=== PATIENT | female | born 1990 | race Caucasian/White ===

== ENCOUNTER → 2020-05-19 11:22 | Outpatient (BNVA) | payer OTHER, SELFPAY | PROVIDERS: PCP Internal Medicine; Referring Provider Internal Medicine; Visit Provider Student in an Organized Health Care Education/Training Program | DX: Z76.89 Persons encountering health services in other specified circumstances (principal) ==

== ENCOUNTER → 2020-10-01 07:32 | Outpatient (BNVA) | payer OTHER, SELFPAY | PROVIDERS: PCP Internal Medicine; Visit Provider Student in an Organized Health Care Education/Training Program ==

== ENCOUNTER → 2021-04-14 09:47 | Outpatient (BNVA) | payer OTHER, SELFPAY | PROVIDERS: PCP Internal Medicine; Visit Provider Nurse Practitioner Family ==

== ENCOUNTER → 2021-08-12 12:30 | Outpatient (BNVA) | payer OTHER, SELFPAY | PROVIDERS: PCP Internal Medicine; Visit Provider Nurse Practitioner Family ==

== ENCOUNTER 2021-10-13 07:34 | Emergency (ER) | payer OTHER, SELFPAY ==
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
[2021-10-13 07:48] VITALS: BP 128/76; BP 130/82; PULSE 100; PULSE 93; RESP 18; TEMP 36.6; O2SAT 100; BMI 27.8
[2021-10-13] MEDS: Ibuprofen 600 MG TABLET PO (08:17)
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
[2021-10-13 09:43] LABS: UPreg QC Valid YES; Urine Pregnancy NEGATIVE (NEGATIVE)
[2021-10-13 09:44] LABS: Appearance Urine CLEAR; Color Urine YELLOW; Glucose Urine UA NEG (NEG); Leukocyte Esterase Urine NEG (NEG); Nitrite Urine NEG (NEG); Specific Gravity - Urine <= 1.005 (1.005-1.025); Urine Blood NEG (NEG); Urine Ketones NEG (NEG); Urine Protein NEG (NEG-TRACE)
== END 2021-10-13 12:19 | disposition home or self-care (01) ==
PROVIDERS: Emergency Provider Emergency Medicine; PCP Internal Medicine
DX: Z04.1 Encounter for examination and observation following transport accident (principal); R07.9 Chest pain, unspecified; M25.562 Pain in left knee
CPT/HCPCS: 70450; 71045; 72125; 73562; 81003; 81025; 99284

== ENCOUNTER → 2022-09-04 13:18 | Outpatient (BNVA) | payer OTHER, SELFPAY | PROVIDERS: PCP Internal Medicine; Visit Provider Nurse Practitioner Family | DX: Z13.89 Encounter for screening for other disorder (principal) ==

== ENCOUNTER 2023-01-18 13:29 | Outpatient (AMB) | payer OTHER, SELFPAY ==
[2023-01-18 13:38] VITALS: BP 108/58; PULSE 97; TEMP 36.3; O2SAT 99; BMI 29.9
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
== END 2023-01-18 14:17 | disposition home or self-care (01) ==
PROVIDERS: PCP Internal Medicine; Visit Provider Student in an Organized Health Care Education/Training Program
DX: M05.79 Rheumatoid arthritis with rheumatoid factor of multiple sites without organ or systems involvement (principal); Z33.1 Pregnant state, incidental
CPT/HCPCS: 99214

== ENCOUNTER → 2023-01-18 13:29 | Outpatient (BNVA) | payer OTHER, SELFPAY | PROVIDERS: PCP Internal Medicine; Visit Provider Student in an Organized Health Care Education/Training Program ==

== ENCOUNTER 2023-10-15 14:12 | Outpatient (AMB) | payer OTHER, SELFPAY ==
[2023-10-15 14:20] VITALS: BP 120/68; PULSE 85; O2SAT 98; BMI 27.2
--- NOTE | 2023-10-15 14:20 | A.OFFVIS_ITS ---
Vital Signs 10/15/23 14:20 Height 5 ft 4 in Weight 158 lb 11.725 oz BMI 27.2 BP 120/68 Blood Pressure Location Rt brachial Position Sitting Pulse 85 Pulse Source Pulse Oximeter Pulse Oximetry (%) 98 Oxygen Delivery Method Room Air Intake Visit Reasons: RA Intake Note: Patient last seen 01/18/23 presents today for follow up and test results Personal Financial Advisor Required: No Accompanied by: Self / Same As Patient Allergies Sulfa (Sulfonamide Antibiotics) [SULFA (SULFONAMIDE ANTIBIOTICS)] Allergy (Unknown, Verified 10/15/23 14:27) RASH, hives, childhood- rash? indomethacin [From INDOCIN] Adverse Reaction (Mild, Verified 10/15/23 14:27) NAUSEA Medication List - Last Reconciled 10/15/23 by Stoney Montoya MD Cimzia (certolizumab pegol) 200 mg subcut Q2W NS ibuprofen 800 mg PO ONCE PRN prenat.vits,allyson,gbu-jacf-gozhw 1 tab PO DAILY HPI Comments Details: This is a 32-year-old female with seropositive RA who returns for follow-up. Patient is doing fairly well overall. She delivered a healthy baby about 8 months ago. She breastfed for 6 months. Her RA does very well while she is . Once she delivers she gets intermittent flare-ups. She is compliant with her Cimzia, she was taking it throughout her and breast-feeding. She states that she gets intermittent flare-ups, intermittent finger swelling. Her left 3rd PIP is mildly swollen. She takes ibuprofen 800 mg about once weekly. The bump on her right index DIP she feels has enlarged. She states that she gets bumps on her elbows. She believes that she started to develop Raynaud's phenomenon. Her fingers change color in to white blue and purple. Only minimally symptomatic. [facility] Medical History (Updated 10/15/23 @ 14:54 by Stoney Montoya MD) Seropositive rheumatoid arthritis Surgical History Hx of section History of surgery History of cystoscopy H/O adenoidectomy Family History Father Cancer Mother No problems noted. 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 [facility] [place] arthralgias and Reports joint swelling Physical Exam Const General: cooperative, healthy appearing and comfortable Nutritional Appearance: average body habitus Orientation/consciousness: patient oriented x3 Limitations: no limitations HEENT Head: Yes normocephalic and Yes atraumatic Mouth: moist mucous membranes Resp Effort & Inspection: normal respiratory effort and able to speak in complete sentences Auscultation: clear to auscultation bilaterally Cardio Rate: regular rate Rhythm: regular rhythm Neuro General: patient oriented x3 Extrem Other: Minimal swelling left 3rd PIP, not tender to palpation Some livido reticularis. Normal nailfold capillaroscopy Firm nodule on the ulnar aspect of her right index DIP, similar lesion on the left elbow. Likely rheumatoid nodules Assessment & Plan Assessment & Plan (1) Seropositive rheumatoid arthritis: Comment: Rheumatoid nodules Age 17 started on plaquenil, took for 2 years Age 21 started on MTX and Enbrel, stopped the MTX Enbrel 07/2016-03/2018 switched to Cimzia in preparation for Cimzia 05/2018- present Code(s): M05.9 - Rheumatoid arthritis with rheumatoid factor, unspecified Category: Medical Plan: Seropositive rheumatoid arthritis (RF+ CCP++) on Cimzia returns for follow-up. RA well controlled on Cimzia 20 mg every other week. Patient delivered a healthy baby 8 months ago. She breast-fed for 6 months. She has been continuing her Cimzia throughout her and breast-feeding. She is doing quite well overall except for mild intermittent flare-ups that resolved with ibuprofen 800 mg which she takes about once a week. Labs are unremarkable Continue Cimzia 200 mg every other week. Can continue with ibuprofen 800 mg once weekly. Labs before next visit in 6 months Plan I spent 26 minutes reviewing patient's chart, evaluating patient, ordering diagnostic workup, counseling patient and documenting in the chart Orders: Orders Complete Blood Count Auto Diff 6 Months M05.9 - Rheumatoid arthritis with rheumatoid factor, unspecified Comprehensive Met. Panel 6 Months M05.9 - Rheumatoid arthritis with rheumatoid factor, unspecified C Reactive Protein 6 Months M05.9 - Rheumatoid arthritis with rheumatoid factor, unspecified Erythrocyte Sedimentation Rate 6 Months M05.9 - Rheumatoid arthritis with rheumatoid factor, unspecified Coding Level of Care Code Est Pt Level 4 (57189) Diagnoses Seropositive rheumatoid arthritis M05.9
== END 2023-10-15 15:15 | disposition home or self-care (01) ==
PROVIDERS: PCP Internal Medicine; Visit Provider Student in an Organized Health Care Education/Training Program
DX: M05.79 Rheumatoid arthritis with rheumatoid factor of multiple sites without organ or systems involvement (principal)
CPT/HCPCS: 99214

== ENCOUNTER → 2023-10-15 14:12 | Outpatient (BNVA) | payer OTHER, SELFPAY | PROVIDERS: PCP Internal Medicine; Visit Provider Student in an Organized Health Care Education/Training Program ==

== ENCOUNTER 2024-06-19 14:05 | Outpatient (AMB) | payer OTHER, SELFPAY ==
--- NOTE | 2024-06-19 14:10 | A.OFFVIS_ITS ---
Vital Signs 06/19/24 14:15 Height 5 ft 4 in Weight 153 lb 3.54 oz BMI 26.3 BP 115/74 Blood Pressure Location Lt brachial Position Sitting Pulse 87 Pulse Source Pulse Oximeter Pulse Oximetry (%) 98 Oxygen Delivery Method Room Air Intake Visit Reasons: RA Intake Note: Patient presents for RA. Allergies Sulfa (Sulfonamide Antibiotics) [SULFA (SULFONAMIDE ANTIBIOTICS)] Allergy (Unknown, Verified 06/19/24 14:14) RASH, hives, childhood- rash? indomethacin [From INDOCIN] Adverse Reaction (Mild, Verified 06/19/24 14:14) NAUSEA Medication List - Last Reconciled 06/19/24 by Mirta Billy MD Cimzia (certolizumab pegol) 200 mg subcut Q2W NS ibuprofen 800 mg PO ONCE PRN prenat.vits,allyson,[id number]-pxmux 1 tab PO DAILY HPI Comments Details: Patient is a 33-year-old female with seropositive nodular and erosive rheumatoid arthritis here today for follow up Interval History: Patient last seen 10/15/[address] Montoya. At that time she was doing fairly well having recently delivered a healthy baby 8 months prior. She does note that while she is (this is her 2nd child) she is in complete remission of her rheumatoid arthritis and then once she delivers she gets intermittent flare-ups. For her flare-up she was taking ibuprofen 800 mg . Today, She again reports getting intermittent flares that responds to ibuprofen especially after a long day or day where she pushes herself extra. Particularly she is concerned today about her right elbow stating that she has significant pain involving the elbow and sometimes she feels like she can not even straighten it. 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 Const Details: Review of Systems Constitutional: Denies fever, chills, weight loss ENT: Denies vision changes, eye pain or eye redness, dental caries, dry mouth GI: Denies nausea, vomiting, diarrhea, abdominal pain, change in BM Pulm: Denies SOB, RODRGIUEZ, hemoptysis, wheezing Cards: Denies chest pain, palpitations Skin: Denies Raynaud's, rash, nail changes, photosensitivity, AIRFLIGHT ATTENDANTS SUPERVISOR: Denies headaches, weakness, paresthesias, recurrent falls MSK: as per HPI All other systems reviewed and are unremarkable except noted above Physical Exam Vital Signs: Last Vital Signs Pulse 87 06/19/24 14:15 BP 115/74 06/19/24 14:15 Pulse Ox 98 06/19/24 14:15 Oxygen Delivery Method Room Air 06/19/24 14:15 BMI result Body Mass Index 26.3 Vital signs reviewed Physical Examination CONSTITUITIONAL Patient alert and cooperative. Well appearing and in no apparent painful distress HEENT Conjunctiva and sclera clear. ?Pupils equal round and reactive to light. ?No lymphadenopathy. ? CHEST/RESPIRATORY SYSTEM Normal respiratory effort and able to speak in complete sentences. ?Clear to auscultation bilaterally. ?No crackles, rales, rhonchi, wheezes heard. CARDIAC SYSTEM Regular rate and rhythm. ?S1 and S2 heard no murmurs. ?Radial pulses intact bilaterally MSK Hands: ?Good parts processor strength bilaterally. Rheumatoid nodule noted to the right 3rd DIPs on the ulnar side. ?No synovitis noted to the MCPs, PIPs or DIPs. ?No tenderness to palpation of these joints. Wrists: ?Full range of motion at the wrists without pain. ?No tenderness to palpation or synovitis noted to the wrists. Elbows: Slightly decreased range of motion to the right elbow does not make it to a full 180 degrees, maybe origin 60 degrees of extension. There is tenderness to palpation of the elbow joint proper and not the medial and lateral epicondyles. The left elbow is without any abnormalities. Shoulders: Full range of motion without pain. No tenderness, weakness, swelling, increased warmth or erythema. Hips: Full range of motion without pain. Hip bursa: No tenderness to palpation Knees: ?Full range of motion. ?No tenderness, swelling, increased warmth or erythema.?No effusion or crepitations Ankles: Full range of motion. ?No tenderness, swelling, increased warmth or erythema.? Feet: ?Negative squeeze test. ?No tenderness to palpation or swelling of the MTPs. Tender points:?No tenderness to palpation of the bilateral trapezius, supraspinatus, greater trochanters, anterior costochondral junctions, bilateral gluteal areas, bilateral suboccipital muscle insertions SKIN Skin intact without rashes. Results Reviewed Results Reviewed: Patient brought results from [facility] 06/18/2024 ESR 11 CRP <1 WBC 9.//RBC 4.34/HB 13.3/HCT 40.7/platelets 261 Glucose 86/BUN 13/CR 0.85/sodium 138/potassium 4.4/chloride 101/CO2 22 Assessment & Plan Assessment & Plan (1) Seropositive rheumatoid arthritis: Comment: Rheumatoid nodules Age 17 started on plaquenil, took for 2 years Age 21 started on MTX and Enbrel, stopped the MTX Enbrel 07/2016-03/2018 switched to Cimzia in preparation for Cimzia 05/2018- present Code(s): M05.9 - Rheumatoid arthritis with rheumatoid factor, unspecified Category: Medical Plan: #Seropositive nodular and erosive RA Patient with seropositive nodular and erosive rheumatoid arthritis currently in remission. Although my concern is that she is still having progression of disease even on the Cimzia because she is having restriction of full range of motion of the right elbow. I discussed with patient about adding Plaquenil to her medication regimen. It is and safe as she is not certain that she is finished having children. Patient says she will consider taking this medication Plan - Cimzia 200mg SC every other week - Plaquenil 200mg bid daily - RTC 4 months - Labs prior to next visit. 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: Code(s): Z79.620 - residential (current) use of immunosuppressive biologic Category: Medical Plan: #Long-term Use of TNF Inhibitors: Cimzia Discussed with the patient the benefits and risks of TNF inhibitors for the management of the rheumatic condition Benefits include reduce pain, maintenance of remission and reduction of flares as well as ?progression of the disease Risks include injection sites/infusion reactions, serious infections (such as bacterial infections, opportunistic infections), malignancy, delaminating syndromes, autoimmune phenomena, CHF exacerbations, palmar plantar psoriasis and cytopenias Recommended rotating injection sites, and holding medication during and for up to 1 week after resolution of a febrile illness or open skin wound (3) Long-term use of Plaquenil: Code(s): Z79.899 - Other correction (current) drug therapy Category: Medical Plan: #Long-term Use of Hydroxychloroquine Discussed with patient the risks and benefits of hydroxychloroquine in managing the rheumatic condition Benefits include: - Reduced pain, reduce mortality, maintenance of remission and reduction of flares Risks include: - GI upset, skin hyperpigmentation, retinal toxicity (especially after more than 5 years of use), myopathy Advised yearly ophthalmology visits Plan I spent 30 minutes reviewing the record and labs, taking a history, examining the patient, discussing the treatment plan and documenting in the medical record Orders: Orders XR hand wrist RT Today M05.9 - Rheumatoid arthritis with rheumatoid factor, unspecified XR elbow LT min 3V Today M05.9 - Rheumatoid arthritis with rheumatoid factor, unspecified XR foot LT min 3V Today M05.9 - Rheumatoid arthritis with rheumatoid factor, unspecified XR foot RT min 3V Today M05.9 - Rheumatoid arthritis with rheumatoid factor, unspecified Comprehensive Met. Panel 4 Months M05.9 - Rheumatoid arthritis with rheumatoid factor, unspecified XR hand wrist LT Today M05.9 - Rheumatoid arthritis with rheumatoid factor, unspecified XR elbow RT min 3V Today M05.9 - Rheumatoid arthritis with rheumatoid factor, unspecified Complete Blood Count Auto Diff 4 Months M05.9 - Rheumatoid arthritis with rheumatoid factor, unspecified C Reactive Protein 4 Months M05.9 - Rheumatoid arthritis with rheumatoid factor, unspecified Erythrocyte Sedimentation Rate 4 Months M05.9 - Rheumatoid arthritis with rheumatoid factor, unspecified Hepatitis A,B,C Profile 4 Months M05.9 - Rheumatoid arthritis with rheumatoid factor, unspecified Medications: New hydroxychloroquine (Plaquenil) 200 mg PO BID 180 tabs 1RF 90 days M05.9 - Rheumatoid arthritis with rheumatoid factor, unspecified Coding Level of Care Code Est Pt Level 4 (80513) Complex EM visit Add On G2211 Diagnoses Seropositive rheumatoid arthritis M05.9 residential (current) use of immunosuppressive biologic Z79.620 Long-term use of Plaquenil Z79.899
[2024-06-19 14:15] VITALS: BP 115/74; PULSE 87; O2SAT 98; BMI 26.3
--- OUTSIDE RECORDS SUMMARY | 2024-06-19 18:38 | XMS_ITS | Continuity of Care Document ---
Author Organization [facility] Osw[facility] lt Address [address] [place] [address]- Care Team Providers Care Director Business Travel Name Role Phone Romeo Casiano MD Primary Care Physician [phone] Encounter [facility] ACCT R [id number] Date(s): 05/05/24 - 06/06/24 [facility] Adult [address] [place] [address]- Attending Physician: Romeo Casiano MD Encounter Type: Pre Office Visit Allergies, Adverse Reactions, Alerts Substance Criticality Severity Reaction Reaction Severity Status sulfa drugs rash Active Macrobid Rash Active Indocin Active Immunizations Given and Recorded Vaccine Date Status Refusal Reason influenza virus vaccine, inactivated 04/19/21 Tong rded influenza virus vaccine, inactivated 03/22/20 Tong rded influenza virus vaccine, inactivated 03/13/18 Tong rded influenza virus vaccine, inactivated 03/12/18 Give n SARS-CoV-2 (COVID-19) mRNA-1273 vaccine 02/15/21 R ecorded SARS-CoV-2 (COVID-19) mRNA-1273 vaccine 01/13/21 G iven tetanus/diphtheria/pertussis, acel(Tdap) 10/04/20 Recorded tetanus/diphtheria/pertussis, acel(Tdap) 04/12/18 Given Influenza Virus Vaccine (oldterm) 03/05/19 Recorde d Hepatitis A Adult Vaccine 09/05/18 Given pneumococcal 23-valent vaccine 06/13/18 Given Gardasil (oldterm) 01/12/04 Given Gardasil (oldterm) 08/12/03 Given Gardasil (oldterm) 06/13/03 Given Problem List Condition Confirmation Course Effective Dates Status Health St atus Informant Anxiety Confirmed Active Arthritis Confirmed Active Thyroid antibody positive 1 Confirmed Active Upper back pain Confirmed Active Chronic neck pain Confirmed Active Brain concussion Confirmed Active Atypical nevus 2 Confirmed Active Eczematous dermatitis Confirmed Active Esophageal reflux Confirmed Active History of retinal tear 3 Confirmed Active Neck pain Confirmed Active Numbness of right foot Confirmed Active Obese class I Confirmed Active Wrist pain, left Confirmed Active Knee pain, left Confirmed Active PTSD (post-traumatic stress disorder) Confirmed Active Recurrent urinary tract infection 4 Confirmed Active Rheumatoid arthritis 5 Confirmed Active Strain of neck Confirmed Active Recurrent urticaria Confirmed Active 1Going to [facility] endocrinology 2followed by SAMEERA de anda 3Followed by ophthalmology, Dr Smalls 4followed by Kamran 5followed by Dr. Crow Social History Social History Type Response Smoking Status Never smoker; Tobacc o user in household: No entered on: 12/15/15 Sex Sex Representation Female (finding) Patient Care team information Care Team Personnel Name: Romeo Casiano MD Position: [facility] Physician - Primary Care Member Role: PCP Address: [address] [place] [id number]- Telecom: Care Team Related Persons Name: APRIL DIGGS Name: MARC DIGGS Name: SAM DIGGS Name: JANE BARRETO Name: KASSANDRA BARRETO Insurance Providers Guarantor name: GRAYSON DONTAE Health Plan Information #: 1 Payer: [facility] P[employer] Member Number: [id number] Policy Number: NA Group Number: [id number] Health Plan Information #: 2 Payer: [facility] P[employer] Member Number: [id number] Policy Number: NA Group Number: [id number]
--- OUTSIDE RECORDS SUMMARY | 2024-06-19 18:38 | XMS_ITS | Continuity of Care Document ---
Author Organization [facility] Address [address] [place] [address], [address] [place] [address]- Care Team Providers Care Project Product Manager Name Role Phone Stephenie GIL, Romeo Díaz Primary Care Physician Encounter [facility] Date(s): [facility]08[facility] [address] [place] [address], [address] [place], [place] [address] Encounter Type: Triage Allergies, Adverse Reactions, Alerts Substance Criticality Severity [...] Active Recurrent urticaria Confirmed Active 1Going to [facility] endocrinology 2followed by SAMEERA derm 3Followed by ophthalmology, Dr Smalls 4followed by Kamran 5followed by Dr. Crow Social History Social History Type Response Smoking Status Never smoker; Tobacc o user in household: No entered on: 12/15/15 Sex Sex Representation Female (finding) Patient Care team information Care Team Personnel Name: Romeo Casiano MD Position: [facility] Physician - Primary Care Member Role: PCP Address: [address] [place] [id number]- Telecom: Care Team Related Persons Name: APRIL DIGGS Name: MARC DIGGS Name: SAM DIGGS Name: JANE BARRETO Name: KASSANDRA BARRETO Insurance Providers Guarantor name: GRAYSON DONTAE Health Plan Information #: 1 Payer: [facility] PPO Member Number: NA Policy Number: NA Group Number: NA
== END 2024-06-19 15:07 | disposition home or self-care (01) ==
PROVIDERS: PCP Internal Medicine; Visit Provider Student in an Organized Health Care Education/Training Program
DX: M05.79 Rheumatoid arthritis with rheumatoid factor of multiple sites without organ or systems involvement (principal); Z79.620 Long term (current) use of immunosuppressive biologic; Z79.899 Other long term (current) drug therapy
CPT/HCPCS: 99214

== ENCOUNTER → 2024-06-19 14:05 | Outpatient (BNVA) | payer OTHER, SELFPAY | PROVIDERS: PCP Internal Medicine; Visit Provider Student in an Organized Health Care Education/Training Program ==

== ENCOUNTER 2025-05-13 13:42 | Outpatient (AMB) | payer OTHER, SELFPAY ==
--- NOTE | 2025-05-13 13:50 | MHC.OFFVIS ---
Vital Signs 05/13/25 13:57 Height 5 ft 4 in Weight 169 lb 1.513 oz BMI 29.0 BP 124/80 Blood Pressure Location Lt brachial Position Sitting Pulse 89 Pulse Source Pulse Oximeter Pulse Oximetry (%) 98 Oxygen Delivery Method Room Air Intake Visit Reasons: follow up Intake Note: Patient presents today for RA follow up. Tenant Selector Required: No Information Interpreted: non-clinical & clinical Accompanied by: Child Allergies Sulfa (Sulfonamide Antibiotics) (SULFA (SULFONAMIDE ANTIBIOTICS)) Allergy (Unknown, Verified 05/13/25 13:56) RASH, hives, childhood- rash? indomethacin (From INDOCIN) Adverse Reaction (Mild, Verified 05/13/25 13:56) NAUSEA Medication List - Last Reconciled 05/13/25 by Mirta Billy MD Cimzia (certolizumab pegol) 200 mg subcut Q2W NS hydroxychloroquine (Plaquenil) 200 mg PO BID 90 days ibuprofen 800 mg PO ONCE PRN prenat.vits,allyson,[id number]-lebbd 1 tab PO DAILY HPI Comments Details: Patient is a 3-year-old female with seropositive nodular and erosive rheumatoid arthritis here today for follow up Interval History: Patient last seen 06/19/2024 with me - On Cimzia 200mg every other week - She again reports getting intermittent flares that responds to ibuprofen especially after a long day or day where she pushes herself extra. - Particularly she is concerned today about her right elbow stating that she has significant pain involving the elbow and sometimes she feels like she can not even straighten it. - Added plaquenil to her regimen for additional coverage Today - On Cimzia 200mg SC every other week - did not start the Plaquenil because she felt overall that her symptoms were manageable with the intermittent ibuprofen - here today with her kids, son recently diagnosed with type 1 diabetes - overall no significant complaints today Rheumatologic History: Patient diagnosed with rheumatoid arthritis at the age of 17 Age 17 started on plaquenil, took for 2 years Age 21 started on MTX and Enbrel, stopped the MTX Enbrel 07/2016-03/2018 switched to Cimzia in preparation for Cimzia 05/2018- present Current Rheumatology Medication(s): Cimzia 200mg every other week [facility] Medical History (Updated 06/19/24 @ 16:11 by Mirta Billy MD) Long-term use of Plaquenil residential (current) use of immunosuppressive biologic Seropositive rheumatoid arthritis Surgical History Hx of section History of surgery History of cystoscopy H/O adenoidectomy Family History Father Cancer Mother No problems noted. Son Diabetes 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 Narrative Review of Systems Constitutional: Denies fever, chills, weight loss ENT: Denies vision changes, eye pain or eye redness, dental caries, dry mouth GI: Denies nausea, vomiting, diarrhea, abdominal pain, change in BM Pulm: Denies SOB, RODRIGUEZ, hemoptysis, wheezing Cards: Denies chest pain, palpitations Skin: Denies Raynaud's, rash, nail changes, photosensitivity, RETAIL DEPARTMENT SUPERVISOR: Denies headaches, weakness, paresthesias, recurrent falls MSK: as per HPI All other systems reviewed and are unremarkable except noted above Physical Exam Exam Exam: Vital signs reviewed Physical Examination CONSTITUITIONAL Patient alert and cooperative. Well appearing and in no apparent painful distress MSK Hands Right Hand: Able to make a fist. No swelling or tenderness to palpation of the MCPs, PIPs or DIPs. No deformities noted. Left Hand: Able to make a fist. No swelling or tenderness to palpation of the MCPs, PIPs or DIPs. No deformities noted. Wrists Right Wrist: Full ROM to flexion and extension. No swelling or TTP Left Wrist: Full ROM to flexion and extension. No swelling or TTP Elbows Right Elbow: Full ROM. No swelling or TTP. No TTP of the medial epicondyle. No TTP of the lateral epicondyle Left Elbow: Full ROM. No swelling or TTP. No TTP of the medial epicondyle. No TTP of the lateral epicondyle Shoulders Right shoulder: Full ROM. No swelling noted. No TTP of the AC joint. No TTP of the subacromial bursa. No TTP of the posterior shoulder Left shoulder: Full ROM. No swelling noted. No TTP of the AC joint. No TTP of the subacromial bursa. No TTP of the posterior shoulder Knees Right knee: Full ROM. No swelling noted. No TTP of the knee joint line. No TTP of pes anserine bursa Left knee: Full ROM. No swelling noted. No TTP of the knee joint line. No TTP of pes anserine bursa. Ankles Right ankle: Good ankle dorsiflexion and plantar flexion. No swelling. No TTP of the ankle joint Left ankle: Good ankle dorsiflexion and plantar flexion. No swelling. No TTP of the ankle joint Feet Right foot: Negative squeeze test Left foot: Negative squeeze test Tender points? No tenderness to palpation of the bilateral trapezius, supraspinatus, anterior costochondral junctions, bilateral suboccipital muscle insertions SKIN No rashes Vital Signs: Last Vital Signs Pulse 89 05/13/25 13:57 BP 124/80 05/13/25 13:57 Pulse Ox 98 05/13/25 13:57 Oxygen Delivery Method Room Air 05/13/25 13:57 BMI result Body Mass Index 29.0 Results Reviewed Results Reviewed: 02/26/25 Lab [facility] WBC 7.9 Hb 13.5 Plt 225 BUN 17 Cr 0.69 eGFR 117 AST 16 ALT 13 ESR 13 CRP 4 Hep B Negative HCV Negative Assessment & Plan Assessment & Plan (1) Seropositive rheumatoid arthritis: Comment: Rheumatoid nodules Age 17 started on plaquenil, took for 2 years Age 21 started on MTX and Enbrel, stopped the MTX Enbrel 07/2016-03/2018 switched to Cimzia in preparation for Cimzia 05/2018- present Code(s): M05.9 - Rheumatoid arthritis with rheumatoid factor, unspecified Category: Medical Plan: #Seropositive nodular and erosive RA Patient is a 34-year-old female with seropositive nodular and erosive rheumatoid arthritis currently in remission. Does have some days where she needs to take ibuprofen 800 mg but this is usually once or twice a week Did not add the Plaquenil because she did not feel that her symptoms required it Plan - Cimzia 200mg SC every other week - RTC 6 months - Labs prior to next visit. CBC, CMP, ESR, CRP (2) residential (current) use of immunosuppressive biologic: Code(s): Z79.620 - air tucker (current) use of immunosuppressive biologic Category: Medical Plan: #Long-term Use of TNF Inhibitors: Cimzia Discussed with the patient the benefits and risks of TNF inhibitors for the management of the rheumatic condition Benefits include reduce pain, maintenance of remission and reduction of flares as well as ?progression of the disease Risks include injection sites/infusion reactions, serious infections (such as bacterial infections, opportunistic infections), malignancy, delaminating syndromes, autoimmune phenomena, CHF exacerbations, palmar plantar psoriasis and cytopenias Recommended rotating injection sites, and holding medication during and for up to 1 week after resolution of a febrile illness or open skin wound Plan I spent 30 minutes reviewing the record and labs, taking a history, examining the patient, discussing the treatment plan and documenting in the medical record Orders: Orders Comprehensive Met. Panel 6 Months Z79.899 - Other wrapper stemmer operator (current) drug therapy Erythrocyte Sedimentation Rate 6 Months Z79.899 - Other usp (current) drug therapy Complete Blood Count Auto Diff Today Z79.899 - Other wrapper stemmer operator (current) drug therapy C Reactive Protein Today Z79.899 - Other usp (current) drug therapy Complete Blood Count Auto Diff 6 Months Z79.899 - Other wrapper stemmer operator (current) drug therapy C Reactive Protein 6 Months Z79.899 - Other wrapper stemmer operator (current) drug therapy Comprehensive Met. Panel Today Z79.899 - Other usp (current) drug therapy Erythrocyte Sedimentation Rate Today Z79.899 - Other usp (current) drug therapy Medications: Refilled Cimzia (certolizumab pegol) 200 mg subcut Q2W 6 ea 1RF NS M05.9 - Rheumatoid arthritis with rheumatoid factor, unspecified Coding Level of Care Code Est Pt Level 4 (78753) Add On Problem Visit Only Diagnoses Seropositive rheumatoid arthritis M05.9 air tucker (current) use of immunosuppressive biologic Z79.620
[2025-05-13 13:57] VITALS: BP 124/80; PULSE 89; O2SAT 98; BMI 29.0
--- OUTSIDE RECORDS SUMMARY | 2025-05-13 21:15 | XMS_ITS | Clinical Summary ---
Author Organization [facility] Address [address] [place] [address] Phone Care Team Providers Care Electrotyper Apprentice Name Role Phone Danyelle Harris TOBACCO STRIPPER HAND Unavailable [phone] Pcp, Unknown Primary Care Provider Unavailabl e Allergies Active Allergy Reactions Criticality Noted Date Comments Indomethacin Nausea and/or Vomiting 09/20/2017 Sulfa (Sulfonamide Antibiotics) 06/01/2017 Unknown Medications etanercept (ENBREL SURECLICK) 50 mg/mL (0.98 mL) PnIj Inject 50 mg under the skin once a week. 13 Syringe 3 7 Active omeprazole (PRILOSEC) 20 MG capsuleIndicatio ns:Gastroesophag eal reflux disease, esophagitis presence not specified Take 1 capsule (20 mg total) by mouth daily. 90 capsule 3 7 Active Additional Information Patient not taking.Reported on 02/01/2018 vitamin with iron fumarate-folic acid 29 mg iron- 1 mg Chew Take 1 tablet by mouth daily. 90 tablet 2 8 Active Additional Information Patient not taking.Reported on 02/01/2018 ibuprofen (ADVIL,MOTRIN) 800 MG tablet Take 1 tab 3 times daily with food as needed 90 tablet 8 Active nitrofurantoin (MACRODANTIN) 100 MG capsule Take 100 mg by mouth daily as needed. 6 8 Active LORazepam (ATIVAN) 0.5 MG tabletIndication s:Anxiety Take 1 tablet (0.5 mg total) by mouth daily as needed for anxiety. 15 tablet 8 Active Active Problems Problem Noted Date Diagnosed Date Pain in both feet 10/17/2017 Pain in both hands 10/17/2017 Anxiety 09/20/2017 Mass of lower extremity 09/20/2017 Rheumatoid arthritis 06/01/2017 Rheumatoid arthritis involvi ng multiple sites with positive rheumatoid factor 06/01/2017 Gastroesophageal reflux disease 06/01/2017 correction current use of non -steroidal anti-inflammatories (NSAID) 06/01/2017 On etanercept therapy 06/01/2017 Immunizations Immunization Administration Dates Next Due INFLUENZA, SPLIT VIRUS, TRIVALENT W/ PRESERVATIV E IM 04/03/2016 Family History Medical History Relation Comments Cancer Father 2 Relation Status Comments Father 1 Father 2 Social History Tobacco Use Types Packs/Day Years Used Date Smoking Tobacco: Never Smokeless Tobacco: Never Alcohol Use Standard Drinks/Week Comments Yes 0 (1 standard drink = 0.6 oz pur e alcohol) Socially Education Answer Date Recorded Are you interested in more education? Not on alejandro e 09/29/2022 Are you concerned about learning? Not on file 09/29/2022 No 09/29/2022 No 09/29/2022 Digital Access Answer Date Recorded No 2022 No 2022 Reliable internet access at home? Not on file 2022 Device with a working camera? Not on file Comments Unknown Sex and Gender Information Value Date Recorded Sex Assigned at Not on file Legal Sex Female 4:32 PM EST Gender Identity Not on file Sexual Orientation Not on file Last Filed Vital Signs Vital Sign Reading Time Taken Comments Blood Pressure 110/80 02/01/2018 2:19 PM EDT Pulse 81 02/01/2018 2:19 PM EDT Temperature 36.4 C (97.6 F) 02/01/2018 2:19 PM EDT Respiratory Rate 16 02/01/2018 2:19 PM EDT Oxygen Saturation 97% 02/01/2018 2:19 PM EDT Inhaled Oxygen Concentration - - Weight - - Height 162.6 cm (5' 4.02 ) 02/01/2018 2:19 PM ED T Body Mass Index - - Plan of Treatment Health Maintenance Due Date Last Done Comments HEPATITIS C SCREENING 2008 HIV ONE-TIME SCREENING (18-6 5 YEARS) 2008 PNEUMOCOCCAL VACCINES (0-49 years) (1 of 2 - PCV) 2009 DEPRESSION SCREENING 02/01/2019 02/01/2018 PAP SMEAR 11/19/2020 11/19/2017 COVID-19 VACCINE (3 - Modern a risk series) 03/15/2021 02/15/2021, 01/13/2021 INFLUENZA VACCINE (#1) 2025 0, 04/03/2016 Adult Td,Tdap Booster 10/04/2030 10/04/2020 SMOKING STATUS SCREENING (On ce After 26 Yrs) Completed 02/01/2018 HEPATITIS A VACCINES Aged Out No long er eligible based on patient's age to complete this topic HIB VACCINES Aged Out No longer eligi ble based on patient's age to complete this topic MENINGOCOCCAL VACCINES (ACWY) Aged Out No longer eligible based on patient's age to complete this topic MENINGOCOCCAL VACCINES (B) Aged Out N o longer eligible based on patient's age to complete this topic Medical Devices Not on file Procedures Procedure Name Priority Date/Time Associated Diagnosis Comments PAP SMEAR FOR RESULT ENTRY ONLY Routine 11/19/2017 from Last 3 Months or Most Recently Relevant to Health Maintenance Results * PAP SMEAR FOR RESULT ENTRY ONLY (11/19/2017) Historical Provider MD HEALTH MAINTENANCE Final Result from Last 3 Months or Most Recently Relevant to Health Maintenance Insurance [facility] HMO Care Teams Electrotyper Apprentice Relationship Specialty Start Date End Date Pcp, Unknown PCP - General 01/02/22 Danyelle Harris NP [email or web address] Historical LMR Provider 03/21/17 Additional Source Comments The information contained in this document represents components of the legal health record. It is not the complete legal health record.[facility]
--- OUTSIDE RECORDS SUMMARY | 2025-05-13 21:15 | XMS_ITS | Encounter Summary ---
Author Organization [facility] Address [address] [place] [address] Phone Care Team Providers Care Yarn Skeins Examiner Name Role Phone Issa Henry MD Unavailable [phone] Samaria Field MD Unavailable Jacqueline Frank WINDOW TRIMMER APPRENTICE Unavailable Danyelle Harris WINDOW TRIMMER APPRENTICE Unavailable [phone] Danyelle Harris WINDOW TRIMMER APPRENTICE Primary Care Provider Pcp, Unknown Primary Care Provider Unavailabl e Encounter Details Date Type Department Care Team (Latest Contact Info) Description 06/01/2017 Transcribe Orders [facility] [address] [place] [address] Samaria Field MD 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) Social History Tobacco Use Types Packs/Day Years Used Date Smoking Tobacco: Never Smokeless Tobacco: Never Alcohol Use Standard Drinks/Week Comments Yes 0 (1 standard drink = 0.6 oz pur e alcohol) Socially Comments Unknown Sex and Gender Information Value Date Recorded Sex Assigned at Not on file Legal Sex Female 4:32 PM EST Gender Identity Not on file Sexual Orientation Not on file documented as of this encounter Plan of Treatment Not on file documented as of this encounter Results * Sedimentation rate (ESR) (06/01/2017 3:29 PM EST) ESR 6 0 - 20 mm/h [facility] Blood 06/01/2017 3:29 PM EST 06/01/2017 3:31 PM EST us Samaria Field MD LAB BLOOD BKR ORDERABLES Final Result Performing Organization Address City/[facility]/ZIP Co de Phone Number [address] [address] * C-Reactive Protein (06/01/2017 3:29 PM EST) C REACTIVE PROTEIN 0.5 0 - 0.5 mg/L [facility] Blood 06/01/2017 3:29 PM EST 06/01/2017 3:31 PM EST us Samaria Field MD LAB BLOOD BKR ORDERABLES Final Result Performing Organization Address City/[facility]/ZIP Co de Phone Number [address] [phone] * Comprehensive metabolic panel (06/01/2017 3:29 PM EST) Pathologist [facility] SODIUM 142 133 - 146 mmol/L [facility] POTASSIUM 3.9 3.3 - 5.1 mmol/L [facility] CHLORIDE 103 96 - 108 mmol/L [facility] CO2 27 21 - 35 mmol/L [facility] BUN 10 6 - 19 mg/dL [facility] CREATININE 0.60 0.5 - 1.5 mg/dL [facility] GLUCOSE 77 70 - 99 mg/dL [facility] ALBUMIN 4.4 3.9 - 4.8 g/dL [facility] TOTAL PROTEIN 7.3 6.5 - 8.0 g/dL [facility] CALCIUM 9.0 8.4 - 10.3 mg/dL [facility] ALKALINE PHOSPHATASE 62 39 - 117 U/L [facility] TOTAL BILIRUBIN 0.2 0 - 1.2 mg/dL [facility] AST 20 0 - 37 U/L [facility] ALT 19 0 - 40 U/L [facility] GLOBULIN 2.9 1 - 4.8 g/dL [facility] EGFR >60 >60 mL/min/1.7 3m2 [facility] Comment:Abnormal if <60. If patient is -Ecuadorean, multiply the result by 1.21. ANION GAP 16 10 - 20 mmol/L [facility] Blood 06/01/2017 3:2 9 PM EST 06/01/2017 3:31 PM EST us Samaria Field MD LAB BLOOD BKR ORDERABLES Final Result Performing Organization Address City/[facility] Co de Phone Number [address] [address] * CBC (06/01/2017 3:29 PM EST) WBC 5.93 3.40 - 11.20 K/uL [facility] RBC 4.13 3.80 - 4.80 M/uL [facility] HGB 13.1 12.0 - 15.0 g/dL [facility] HCT 37.8 36.0 - 46.0 % [facility] PLT 185 130 - 400 K/uL [facility] MCV 91.5 79.0 - 98.0 fL [facility] MCH 31.7 27.0 - 34.8 pg [facility] MCHC 34.7 31.5 - 36.0 g/dL [facility] RDW 11.8 10.8 - 14.6 % [facility] MPV 9.5 9.4 - 12.4 fl [facility] NRBC 0.00 /100 WBCs [facility] ABSOLUTE NRBC 0.00 K/uL [facility] Blood 06/01/2017 3:29 PM EST 06/01/2017 3:31 PM EST us Samaria Field MD LAB BLOOD BKR ORDERABLES Final Result Performing Organization Address City/[facility] Co de Phone Number [address] [address] documented in this encounter Visit Diagnoses Diagnosis Seropositive rheumatoid arthritis of multiple sites- Primary documented in this encounter Care Teams Yarn Skeins Examiner Relationship Specialty Start Date End Date Danyelle Harris, WINDOW TRIMMER APPRENTICE [address] [place] [id number] PCP - General Family Medicine 05/25/17 01/01/22 Pcp, Unknown PCP - General 01/02/22 Issa Henry MD [address] [place] [id number] Historical LMR Provider 03/21/17 06/11/21 Samaria Field MD [address] [place] [address], [address] [place] [address] Historical LMR Provider 03/21/1706/11 Jacqueline Frank, LIS [address] [place] [address] Historical LMR Provider 03/21/17 2 Danyelle Harris, WINDOW TRIMMER APPRENTICE [address] [place] [address] Historical LMR Provider 03/21/17 documented as of this encounter Additional Source Comments The information contained in this document represents components of the legal health record. It is not the complete legal health record.[facility]
== END 2025-05-13 14:22 | disposition home or self-care (01) ==
LOC: HO.RHES 13:42
PROVIDERS: PCP Internal Medicine; Visit Provider Student in an Organized Health Care Education/Training Program
DX: M05.9 Rheumatoid arthritis with rheumatoid factor, unspecified (principal); Z79.620 Long term (current) use of immunosuppressive biologic
CPT/HCPCS: 99214; G2211